=== PATIENT | female | born 1990 | race Caucasian/White ===

== ENCOUNTER 2019-06-25 19:22 | Emergency (ER) | payer OTHER ==
[~2019-06-25] VITALS: Ht 165.1 cm; Wt 197.3 kg
[~2019-06-25 19:22] MED LIST: PREN1TAB58 PO
[2019-06-25] MEDS ORDERED: IV RINGERS SOLUTION,LACTATED 1,000 ML IV SCH (19:51)
[2019-06-25] MEDS ORDERED: ASPIRIN 81 MG TAB.CHEW PO ONE (20:00)
--- NOTE | 2019-06-25 20:27 | RAD ---
Exam performed: 2 views of the chest. Indication: Chest pain Date of Service: 2 views chest from 02/10/2012 . Comparison : None available. Findings: PA and lateral radiographs of the chest reveal a mildly enlarged cardiomediastinal contour which may be accentuated due to poor inspiration. The lungs are clear. No pleural fluid is seen. The visualized osseous structures are unremarkable. Impression: No acute cardiopulmonary process seen. Electronically signed by: Cheyanne Russell MD (06/25/2019 8:24 PM) [facility]
[2019-06-25 20:40] LABS: BASO % 0 % (0-3); EOS # 0.2 x10^3/uL (0.0-0.7); EOS % 2 % (0-3); HEMATOCRIT 40.4 % (36.0-47.0); HEMOGLOBIN 13.2 g/dL (12.0-15.5); LYMPH # 2.8 x10^3/uL (1.0-4.8); LYMPH % 32 % (24-48); MEAN CORPUSCULAR HEMOGLOBIN 31 pg (25-35); MEAN CORPUSCULAR HGB CONC 33 g/dL (31-37); MEAN CORPUSCULAR VOLUME 94 fL (79-100); MONO # 0.9 x10^3/uL (0.0-1.1); MONO % 10 % (0-9); NEUT # 4.8 x10^3uL (1.8-7.7); NEUT % 56 % (31-73); PLATELET COUNT 335 x10^3/uL (140-400); RED BLOOD COUNT 4.31 x10^6/uL (3.50-5.40); RED CELL DISTRIBUTION WIDTH 13.7 % (11.5-14.5); WHITE BLOOD COUNT 8.6 x10^3/uL (4.0-11.0)
[2019-06-25 20:45] LABS: BARBITURATES NEG (NEG); BENZODIAZEPINES NEG (NEG); CANNABINOIDS NEG (NEG); COCAINE NEG (NEG); METHADONE NEG (NEG); OPIATES NEG (NEG); PHENCYCLIDINE NEG (NEG)
[2019-06-25 20:46] LABS: AMPHETAMINE/METHAMPHETAMINE NEG (NEG)
[2019-06-25 20:50] LABS: COLOR,URINE YELLOW
[2019-06-25 20:51] LABS: BACTERIA,URINE FEW /HPF (0-FEW); BILIRUBIN,URINE NEG (NEG); CLARITY,URINE HAZY; GLUCOSE,URINE NEG (NEG); NITRITE,URINE NEG (NEG); RBC,URINE 0 /HPF (0-2); SQUAMOUS EPITHELIAL CELL,UR OCC /LPF; UROBILINOGEN,URINE 0.2 mg/dL (0.2 mg/dL)
[2019-06-25] MEDS ORDERED: DIPHTH,PERTUSS(ACELL),TET TOX 0.5 ML DISP.SYRIN. VAX IM ONE (21:30)
[2019-06-25 21:42] LABS: ALBUMIN 3.6 g/dL (3.4-5.0); CALCIUM 9.4 mg/dL (8.5-10.1); DIRECT BILIRUBIN 0.1 mg/dL (0.0-0.2); MAGNESIUM 2.1 mg/dL (1.8-2.4); POTASSIUM 4.1 mmol/L (3.5-5.1); TOTAL BILIRUBIN 0.2 mg/dL (0.2-1.0); TOTAL PROTEIN 7.6 g/dL (6.4-8.2)
[2019-06-25 23:20] VITALS: BP 116/59
[2019-06-26] MEDS ORDERED: SULF1TAB24 PO (00:05)
[2019-06-26] MEDS ORDERED: FLUC100T7 PO (00:06)
[2019-06-26] MEDS ORDERED: SMZ/TMP 800/160MG TABLET. PO ONE ×2 (00:15→00:30)
--- NOTE | 2019-06-26 00:24 | EKG ---
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
--- NOTE | 2019-06-26 00:25 | EKG ---
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
--- NOTE | 2019-06-26 01:18 | ED.ADGEN ---
Past History Past Medical History: Anxiety, Asthma, Depression, High Cholesterol, Other Past Surgical History: No Surgical History Smoking: Non-smoker Alcohol Use: None Drug Use: None Adult General Chief Complaint Chief Complaint :".. I ve been having chest pain for past 10 days.... It hurts here on the right with deep breaths.. I ve had DVT and PE in the past.. and I got this rash under my breast.. and on my arm.. I think I got MRSA again.. " HPI HPI Patient is a 28 year old female who presents with complaints of pleuritic chest pain. Pain has been present for the past 10 days. Pain is worse with deep breaths and cough. Patient has not had any productive sputum. Patient does smoke. Patient has had previous DVT and pulmonary embolism. Patient not currently on any anticoagulants. No recent travel. No specific ill contacts. There is a family history of cardiac disease and elevated lipids. Patient also complaining of return of MRSA in her breast cleavage area. No recent travel or specific ill contacts. Normally follows Dr. Venegas. Review of Systems Review of Systems Constitutional: Denies fever or chills [] Eyes: Denies change in visual acuity, redness, or eye pain [] HENT: Denies nasal congestion or sore throat [] Respiratory: Complaints of pleuritic chest pain Cardiovascular: No additional information not addressed in HPI [] GI: Denies abdominal pain, nausea, vomiting, bloody stools or diarrhea [] : Denies dysuria or hematuria [] Musculoskeletal: Denies back pain or joint pain [] Integument: Complaints of skin rash suspect MSRA Neurologic: Denies headache, focal weakness or sensory changes [] Endocrine: Denies polyuria or polydipsia [] All other systems were reviewed and found to be within normal limits, except as documented in this note. Family History Family History Diabetes hypertension and elevated cholesterol Current Medications Current Medications Current Medications Medications (Trade) Dose Ordered Sig/David Start Time Stop Time Status Last Admin Dose Admin Aspirin (Children'S Aspirin) 324 mg 1X ONCE 06/25/19 20:00 06/25/19 20:03 DC 06/25/19 20:21 324 MG Diphtheria/ Tetanus/Acell Pertussis (Boostrix) 0.5 ml ONCE ONCE 06/25/19 21:30 06/25/19 21:31 DC 06/25/19 21:28 0.5 ML Ketorolac Tromethamine (Toradol 30mg Vial) 30 mg 1X ONCE 06/26/19 01:30 06/26/19 01:31 DC 06/26/19 01:32 30 MG Lactated Ringer's 1,000 ml @ 100 mls/hr Q10H 06/25/19 19:51 06/26/19 01:37 DC 06/25/19 20:21 100 MLS/HR Trimethoprim/ Sulfamethoxazole (Bactrim Ds) 1 tab STK-MED ONCE 06/26/19 00:15 06/26/19 00:16 DC see nursing for home meds Allergies Allergies Allergies Coded Allergies Type Severity Reaction Last Updated Verified No Known Drug Allergies 03/24/14 No Physical Exam Physical Exam Constitutional: Moderate acute distress, non-toxic appearance. [] HENT: Normocephalic, atraumatic, bilateral external ears normal, oropharynx moist, no oral exudates, nose normal. [] Eyes: PERRLA, EOMI, conjunctiva normal, no discharge. [] Neck: Normal range of motion, no tenderness, supple, no stridor. [] More than 17 inches circumference Cardiovascular:Heart rate regular rhythm, no murmur [] Lungs & Thorax: Bilateral breath sounds equal apexes with a few scattered wheezes and some basilar crackles on auscultation [] Abdomen: Bowel sounds normal, soft, no tenderness, no masses, no pulsatile masses. [] Morbidly obese large pannus Skin: Warm, dry, no erythema, has erythemic rash breast cleavage and axillary. Back: No tenderness, no CVA tenderness. [] Extremities: No tenderness, no cyanosis, no clubbing, ROM intact, bilateral ankle edema. [] No cording appreciated Neurologic: Alert and oriented X 3, normal motor function, normal sensory function, no focal deficits noted. [] Psychologic: Affect anxious, judgement normal, mood normal. [] Current Patient Data Vital Signs Vital Signs Date Time Temp Pulse Resp B/P (MAP) Pulse Ox O2 Delivery O2 Flow Rate FiO2 06/25/19 23:20 74 22 116/59 (78) 95 Room Air 06/25/19 20:01 98.8 Lab Results Laboratory Tests Test 06/25/19 19:55 06/25/19 20:15 06/25/19 20:38 06/25/19 21:16 White Blood Count 8.6 x10^3/uL (4.0-11.0) Red Blood Count 4.31 x10^6/uL (3.50-5.40) Hemoglobin 13.2 g/dL (12.0-15.5) Hematocrit 40.4 % (36.0-47.0) Mean Corpuscular Volume 94 fL (79-100) Mean Corpuscular Hemoglobin 31 pg (25-35) Mean Corpuscular Hemoglobin Concent 33 g/dL (31-37) Red Cell Distribution Width 13.7 % (11.5-14.5) Platelet Count 335 x10^3/uL (140-400) Neutrophils (%) (Auto) 56 % (31-73) Lymphocytes (%) (Auto) 32 % (24-48) Monocytes (%) (Auto) 10 % (0-9) H Eosinophils (%) (Auto) 2 % (0-3) Basophils (%) (Auto) 0 % (0-3) Neutrophils # (Auto) 4.8 x10^3uL (1.8-7.7) Lymphocytes # (Auto) 2.8 x10^3/uL (1.0-4.8) Monocytes # (Auto) 0.9 x10^3/uL (0.0-1.1) Eosinophils # (Auto) 0.2 x10^3/uL (0.0-0.7) Basophils # (Auto) 0.0 x10^3/uL (0.0-0.2) Prothrombin Time 9.8 SEC (9.4-11.4) Prothrombin Time INR 0.9 (0.9-1.1) PTT 27 SEC (23-33) D-Dimer (Bushra) 0.34 mg/L (0.00-0.50) Urine Collection Type Unknown Urine Color Yellow Urine Clarity Hazy Urine pH 6.5 Urine Specific [place] 1.020 Urine Protein Neg (NEG-TRACE) Urine Glucose (UA) Neg mg/dL (NEG) Urine Ketones (Stick) Neg mg/dL (NEG) Urine Blood Neg (NEG) Urine Nitrite Neg (NEG) Urine Bilirubin Neg (NEG) Urine Urobilinogen Dipstick 0.2 mg/dL (0.2 mg/dL) Urine Leukocyte Esterase Neg (NEG) Urine RBC 0 /HPF (0-2) Urine WBC 1-4 /HPF (0-4) Urine Squamous Epithelial Cells Occ /LPF Urine Bacteria Few /HPF (0-FEW) Urine Mucus Mod /LPF Urine Opiates Screen Neg (NEG) Urine Methadone Screen Neg (NEG) Urine Barbiturates Neg (NEG) Urine Phencyclidine Screen Neg (NEG) Urine Amphetamine/Methamphetamine Neg (NEG) Urine Benzodiazepines Screen Neg (NEG) Urine Cocaine Screen Neg (NEG) Urine Cannabinoids Screen Neg (NEG) Urine Ethyl Alcohol Neg (NEG) POC Urine HCG, Qualitative hcg negative (Negative) Sodium Level 141 mmol/L (136-145) Potassium Level 4.1 mmol/L (3.5-5.1) Chloride Level 107 mmol/L (98-107) Carbon Dioxide Level 25 mmol/L (21-32) Anion Gap 9 (6-14) Blood Urea Nitrogen 16 mg/dL (7-20) Creatinine 1.0 mg/dL (0.6-1.0) Estimated GFR (Cockcroft-Gault) 66.0 Glucose Level 86 mg/dL (70-99) Calcium Level 9.4 mg/dL (8.5-10.1) Magnesium Level 2.1 mg/dL (1.8-2.4) Total Bilirubin 0.2 mg/dL (0.2-1.0) Direct Bilirubin 0.1 mg/dL (0.0-0.2) Aspartate Amino Transferase (AST) 14 U/L (15-37) L Alanine Aminotransferase (ALT) 24 U/L (14-59) Alkaline Phosphatase 105 U/L (46-116) Creatine Kinase 64 U/L (26-192) Troponin I Quantitative < 0.017 ng/mL (0-0.055) JQ-Dht-N-Type Natriuretic Peptide 29 pg/mL (0-124) Total Protein 7.6 g/dL (6.4-8.2) Albumin 3.6 g/dL (3.4-5.0) Lipase 104 U/L (73-393) Test 06/26/19 00:25 Troponin I Quantitative < 0.017 ng/mL (0-0.055) EKG EKG My interpretation of EKG shows a sinus rhythm at 81 bpm. There is some nonspecific contour changes anterior septal region. But no findings of acute STEMI with contralateral changes. 19:49 Repeat EKG at 24 minutes[]has a sinus rhythm at 76 bpm. No acute interval change. No findings acute STEMI of contralateral changes. Radiology/Procedures Radiology/Procedures My interpretation of chest x-ray shows no acute cardio pulmonary findings.[] [address] [address] IMAGING REPORT Signed PATIENT: LOULOU ORDAZ ACCOUNT: [id number] : 1990 LOCATION: ER AGE: 28 SEX: F EXAM STATUS: REG ER ORD. PHYSICIAN: MICHELLE BARRERA MD REASON: Chest pain PROCEDURE: CHEST PA & LATERAL Exam performed: 2 views of the chest. Indication: Chest pain Date of Service: 2 views chest from 02/10/2012 . Comparison : None available. Findings: PA and lateral radiographs of the chest reveal a mildly enlarged cardiomediastinal contour which may be accentuated due to poor inspiration. The lungs are clear. No pleural fluid is seen. The visualized osseous structures are unremarkable. Impression: No acute cardiopulmonary process seen. Electronically signed by: Cheyanne Russell MD (06/25/2019 8:24 PM) [facility] DICTATED AND SIGNED BY: CHEYANNE RUSSELL MD DATE: 06/25/192023 CC: MICHELLE BARRERA MD; DEANNA OSORIO JR, MD ~ Course & Med Decision Making Course & Med Decision Making Pertinent Labs and Imaging studies reviewed. (See chart for details) patient to take a daily aspirin. Patient not to smoke. Patient to follow-up primary care. Patient consider outpatient stress testing. Patient to take Bactrim DS twice a day. Patient return if any concerns. [] Final Impression Final Impression 1. Chest Wall Pain 2. Morbid Obesity 3. MRSA [] Dragon Disclaimer Dragon Disclaimer This electronic medical record was generated, in whole or in part, using a voice recognition dictation system. MICHELLE BARRERA MD Jun 26, 2019 01:18
[2019-06-26] MEDS ORDERED: KETOROLAC 30 MG/ML VIAL. IV ONE (01:30)
[2019-06-26 11:21] LABS: THYROID STIM HORMONE (TSH) 3.281 uIU/mL (0.358-3.740)
== END 2019-06-26 01:35 | disposition home or self-care (01) ==
LOC: ER 19:22
DX: R07.81 Pleurodynia (principal); E66.01 Morbid (severe) obesity due to excess calories; J45.909 Unspecified asthma, uncomplicated; E78.00 Pure hypercholesterolemia, unspecified; Z68.45 Body mass index [BMI] 70 or greater, adult; Z86.14 Personal history of Methicillin resistant Staphylococcus aureus infection
CPT/HCPCS: 36415; 71046; 80048; 80061; 80076; 80307; 81001; 81025; 82550; 83690; 83735; 83880; 84443; 84484; 85025; 85379; 85610; 85730; 90471; 90715; 93005; 96374; 99285; J1885; J7120

== ENCOUNTER 2021-09-05 15:00 | Emergency (ER) | payer OTHER ==
[~2021-09-05] VITALS: Ht 165.1 cm; Wt 193.0 kg
[~2021-09-05 15:00] MED LIST changes: +FLUC100T7 PO; +SULF1TAB24 PO
--- NOTE | 2021-09-05 15:07 | PHYS DOC ---
Past History Past Medical History: Anxiety, Asthma, Depression, High Cholesterol, Other Past Surgical History: No Surgical History Smoking: Non-smoker Alcohol Use: None Drug Use: None Adult General HPI HPI Patient is a 30-year-old female presenting via EMS from home for right shoulder/chest wall pain. Onset was yesterday without any known inciting event, trauma, mechanism of injury or exposure. Patient took x2 unknown strength ibuprofen with mild relief in symptoms. Positional movements of right upper extremity and palpation inferior to right clavicle and shoulder area make worse. Pain described as dull but is sharp in nature with movement and palpation. Timing of symptoms has been inconsistent but with increased frequency since onset prompting her to call EMS for transport to our facility for evaluation. On arrival, patient reports she is asymptomatic at rest. She has numerous comorbid conditions related to her obesity such as high blood pressure and hypercholesterol. She denies any personal cardiac history. No blood thinner use. She drinks alcohol occasionally but denies any tobacco or illicit drug use. No family history of early cardiac disease. No fever, lightheadedness or dizziness, ripping or tearing sensation in torso, shortness of breath or cough, abdominal pain, urinary symptoms, changes in motor or sensory or neuro function Review of Systems Review of Systems Fourteen body systems of review of systems have been reviewed. See HPI for pertinent positives and negative responses, other garcias all other systems are negative, non-pertinent or non-contributory Allergies Allergies Allergies Coded Allergies Type Severity Reaction Last Updated Verified No Known Drug Allergies 03/24/14 No Physical Exam Physical Exam Constitutional: Well developed, well nourished, no acute distress, non-toxic appearance. Morbidly obese HENT: Normocephalic, atraumatic, bilateral external ears normal, oropharynx moist, no oral exudates, nose normal. Eyes: PERRLA, EOMI, conjunctiva normal, no discharge. Neck: Normal range of motion, no tenderness, supple, no stridor. Cardiovascular: Heart rate regular, sinus rhythm, no murmurs rubs or gallops. Patient has palpable vein to right chest wall over area of right pectoralis muscle. No palpable abnormalities of entire chest wall Lungs & Thorax: Bilateral breath sounds clear to auscultation Abdomen: Bowel sounds normal, soft and protuberant, no tenderness, no masses, no pulsatile masses. Nonsurgical abdomen, no peritoneal signs Skin: Warm, dry, no erythema, no rash. Back: No tenderness, no CVA tenderness. Extremities: No cyanosis, no clubbing, no edema. Decreased range of motion in all planes of right shoulder due to pain with tenderness over right pectoralis muscle worsened with flexion of right upper extremity Neurologic: Alert and oriented X 3, grossly normal motor & sensory function, no focal deficits noted. Psychologic: Affect normal, judgement normal, mood normal. Current Patient Data Vital Signs Vital Signs Date Time Temp Pulse Resp B/P (MAP) Pulse Ox O2 Delivery O2 Flow Rate FiO2 09/05/21 15:10 98.2 116 26 149/86 (107) 97 Vital Signs Date Time Temp Pulse Resp B/P (MAP) Pulse Ox O2 Delivery O2 Flow Rate FiO2 09/05/21 15:10 98.2 116 26 149/86 (107) 97 EKG EKG [] Radiology/Procedures Radiology/Procedures [] Heart Score C/O Chest Pain: No Risk Factors: Risk Factors: DM, Current or recent (<one month) smoker, HTN, HLP, family history of CAD, obesity. Risk Scores: Risk Factors: DM, Current or recent (<one month) smoker, HTN, HLP, family history of CAD, obesity. 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 Low indication for further diagnostic work-up in ER setting Strict return precautions discussed. Supportive care practices and exercises advised. IM Toradol and orphenadrine administered in ER with improvement in symptoms. Patient subsequently discharged home with close PCP follow-up [place] Disclaimer Dragon Disclaimer This electronic medical record was generated, in whole or in part, using a voice recognition dictation system. Departure Departure: Impression: Primary Impression: Strain of right pectoralis muscle Disposition: HOME / SELF CARE / HOMELESS Condition: STABLE Referrals: IOANA ZAPATA MD (PCP) Patient Instructions: Muscle Strain Additional Instructions: You were seen for musculoskeletal pain. You should return to the ED if you develop worsening pain, fever, numbness, tingling, weakness, or any other new or concerning symptoms. Your pain is most likely due to a muscle strain and should improve with ibuprofen and/or Tylenol for pain control, stretching, and activity. If it does not improve you should follow up with a primary care doctor. VINEET COFFEY DO Sep 05, 2021 15:07
[2021-09-05] MEDS ORDERED: KETOROLAC 60 MG/2 ML VIAL. IM ONE (15:30)
[2021-09-05] MEDS ORDERED: ORPHENADRINE CITRATE 60 MG/2 ML VIAL. IM ONE (15:30)
[2021-09-05 16:10] VITALS: BP 155/83
== END 2021-09-05 16:15 | disposition home or self-care (01) ==
LOC: ER 15:00
DX: S29.011A Strain of muscle and tendon of front wall of thorax, initial encounter (principal); J45.909 Unspecified asthma, uncomplicated; E78.5 Hyperlipidemia, unspecified; X58.XXXA Exposure to other specified factors, initial encounter; Y93.89 Activity, other specified; Y92.89 Other specified places as the place of occurrence of the external cause; Y99.8 Other external cause status
CPT/HCPCS: 96372; 99284; J1885; J2360